=== PATIENT | female | born 1975 | race American Indian/Alaskan Native ===

== ENCOUNTER 2016-12-21 05:47 | Day surgery (SDC) | payer BC ==
--- NOTE | 2016-12-20 14:58 | History and Physical Report ---
History of Present Illness Date of examination: 12/17/16 History of present illness: 41 YOBF p2012 desires permanent sterilization Vital Signs: Patient Profile: 41 Years Old Female LMP: 11/26/2016 Height: 65.5 inches (166.37 cm) Weight: 187 pounds BMI: 30.64 Pt. in pain? no Menstrual History: LMP (date): 11/26/2016 Current Method of Contraception: None Date of Last Pap Smear: 12/09/2015 Past History : 5 Term Births: 2 Premature Births: 0 Living Children: 2 Para: 2 Mult. Births: 0 Prev : 0 Aborta: 3 Elect. Ab: 3 Spont. 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: D&C x3 Umbilical hernia Hysteroscopy: (11/13/2016) Infection History HIV Risk Eval: no Current Allergies: No known allergies Past Medical History: Negative Past Medical History Past Surgical History: D&C x3 Umbilical hernia Hysteroscopy: (11/13/2016) Family History Summary: - Has Family History of Diabetes - Entered On: 12/21/2015 Has Family History of Hypertension - Entered On: 12/21/2015 Social History: Risk Factors: Smoked Tobacco Use: Never smoker Smokeless Tobacco Use: Never Passive smoke exposure: no Drug use: no Alcohol use: no PAP Smear History: Date of Last PAP Smear: 12/09/2015 Review of Systems General Denies fever, chills, sweats, anorexia, fatigue, weakness, malaise, weight loss and sleep disorder. Denies vaginal discharge, incontinence, dysuria, hematuria, urinary frequency, amenorrhea, menorrhagia, abnormal vaginal bleeding, pelvic pain, genital sores, decreased libido, painful periods, painful sex, urinary urgency, hot flashes, vaginal dryness, vaginal itching and vaginal odor. CV Denies chest pains, palpitations, syncope, dyspnea on exertion, orthopnea, PND and peripheral edema. Resp Denies cough, dyspnea at rest, excessive sputum, hemoptysis, wheezing and pleurisy. GI Denies nausea, vomiting, diarrhea, constipation, change in bowel habits, abdominal pain, melena, hematochezia, jaundice, gas/bloating, indigestion/ heartburn, dysphagia and odynophagia. Breast Denies left breast lump, right breast lump, nipple discharge, bloody discharge from nipple, breast pain, abnormal mammogram and breast enlargement. Psych Denies depression, anxiety, irritability and mood swings. Past History Past Medical History: other (See HPI) Past Surgical History: Other (See HPI) Social history: Family history: other (See HPI) Medications and Allergies Allergies Allergy/AdvReac Type Severity Reaction Status Date / Time No Known Allergies Allergy Unverified 12/20/16 09:16 Home Medications Medication Instructions Recorded Confirmed Last Taken Type No Known Home Medications [No 12/20/16 12/20/16 Unknown History Reported Home Medications] Review of Systems Constitutional: other (See HPI) Exam - Physical Exam Narrative exam: HEENT: normocephalic, no lesions or deformities Neck/Thyroid: supple, thyroid normal Skin no ulcers, xanthomas Chest: respiratory effort normal, clear to auscultation Breasts: skin/areolae normal, no masses, no nipple discharge, no erythema/warmth /tenderness, and axillae normal. 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 No evidence of cystocele or rectocele. Cervix: normal appearance, no lesions, no discharge Uterus: normal position, midline, mobile Adnexae: no masses or tenderness Rectovaginal: exam defered Assessment and Plan - Patient Problems (1) Admission for sterilization Status: Acute Plan to address problem: Patient s/p failed Essure placement attempt Patient desires sterilization.Discuss the permanency of sterilization. High risk of regret and 0.5 to 1% risk of failure. Discussed the different risk of abdominal versus vaginal approaches. patient desires laparoscopic tubal ligation Discuss the risks of the surgery including infection, bleeding possibly heavy enough to require a blood transfusion, possible damage to adjacent organs. Discuss permanent nature of the procedure and the 1% failure rate. Discuss of possibility of laparotomy needed
[2016-12-21] MEDS ORDERED: NACL 0.9% 1000 ML 1,000 ML IV SCH (06:00)
[2016-12-21] MEDS ORDERED: NACL BACTERIOSTATIC INFILTRATI ONE (06:23)
[2016-12-21] MEDS ORDERED: DIPRIVAN 10 MG/ML IV ONE (07:03)
[2016-12-21] MEDS ORDERED: SUBLIMAZE ONE (07:03)
[2016-12-21 07:11] LABS: Hematocrit 39.5 % (30.3-42.9); Hemoglobin 12.7 gm/dl (10.1-14.3)
[2016-12-21] MEDS ORDERED: ZOFRAN IV PRN (07:20)
--- NOTE | 2016-12-21 07:20 | Anesthesia Consultation ---
Anesthesia Consult and Med Hx Date of service: 12/21/16 - Airway Anesthetic Teeth Evaluation: Good ROM Head & Neck: Adequate Mental/Hyoid Distance: Adequate Mallampati Class: Class II Intubation Access Assessment: Probably Good - Pulmonary Exam CTA: Yes - Cardiac Exam Cardiac Exam: RRR - Pre-Operative Health Status ASA Pre-Surgery Classification: ASA1 Proposed Anesthetic Plan: General - Pulmonary Hx Smoking: No Hx Asthma: No - Cardiovascular System Hx Hypertension: No Hx Coronary Artery Disease: No - Central Nervous System Hx Psychiatric Problems: No - Endocrine Hx Renal Disease: No Hx Insulin Dependent Diabetes: No Hx Non-Insulin Dependent Diabetes: No - Other Systems Hx Alcohol Use: Yes (occas) Hx Cancer: No
--- NOTE | 2016-12-21 07:20 | Anesthesia Day of Surgery ---
Anesthesia Day of Surgery - Day of Surgery Patient Examined: Yes Patient H&P Reviewed: Yes Patient is NPO: Yes
[2016-12-21] MEDS ORDERED: DECADRON ONE (07:47)
[2016-12-21] MEDS ORDERED: ZOFRAN ONE (07:47)
[2016-12-21] MEDS ORDERED: XYLOCAINE MPF 2% ONE (07:47)
[2016-12-21] MEDS ORDERED: QUELICIN ONE (07:47)
[2016-12-21] MEDS ORDERED: ZEMURON IV ONE (07:49)
[2016-12-21] MEDS ORDERED: ROBINUL ONE (07:51)
[2016-12-21] MEDS ORDERED: NEOSTIGMINE ONE (07:54)
[2016-12-21] MEDS ORDERED: MARCAINE 0.5% INFILTRATI ONE (07:54)
[2016-12-21] MEDS ORDERED: NACL 0.9% IR ONE (07:54)
[2016-12-21] MEDS ORDERED: PEPCID PO NR (08:00)
[2016-12-21] MEDS ORDERED: VERSED IV NR (08:00)
[2016-12-21] MEDS ORDERED: TORADOL ONE (08:11)
--- NOTE | 2016-12-21 08:33 | Operative Report ---
Operative Report Operative Report: Pre-operative diagnosis: Patient desires permanent sterilization Post-operative diagnosis: Same Procedure name(s): Laparoscopic bilateral tubal ligation with Falope-Rings Surgeon: Afshin Zuniga MD Net Developer Consultant: [] Anesthesia: General endotracheal EBL: Minimal Complications: None Findings: Patient with uterus approximately 8- weeks in size with normal fallopian tubes bilaterally Specimen(s): None Patient was brought in the operating room. General anesthesia was induced without difficulty. She was placed in dorsal lithotomy position. Prepped and draped in usual sterile manner. Her urinary bladder with was emptied with a red rubber catheter. Discharge and uterine manipulator was placed for uterine manipulation. Attention was then switched to the patient's abdomen. An infra- umbilical incision was made with a scalpel. This incision was spread with a hemostat. A 5 mm trocar was placed in this incision while lifting high the abdominal wall. Intra-abdominal presence was verified directly with the laparoscope. The patient was then insufflated to approximately 3 L of CO2 gas. The patient's findings as noted above. An accessory puncture was made suprapubically. The 8 mm trocar was placed through this incision under direct visualization with no evidence of internal organ damage. Each of the fallopian tube were identified by its fimbriated end. A portion approximately 1-2 cm from each cornua was grasped with the Falope ring applicator. Falope-Rings were placed without any difficulty bilaterally. 2 rings were placed on the right tube. At this time all instruments were removed. The patient was insufflated. The skin incisions were closed subcuticular with 4-0 Vicryl. Marcaine was given subcuticularly for postoperative pain relief. The patient tolerated procedure well. She was awakened in the operating room and accompanied to the recovery room in good condition.
--- NOTE | 2016-12-21 08:35 | Short Stay Summary ---
Short Stay Documentation Date of service: 12/21/16 - History Past Medical History: other (See HPI) Past Surgical History: Other (See HPI) Social history: - Allergies and Medications Current Medications: Allergies No Known Allergies Allergy (Unverified 12/20/16 09:16) Home Medications Medication Instructions Recorded Confirmed Last Taken Type No Known Home Medications [No 12/20/16 12/20/16 Unknown History Reported Home Medications] Active Medications Famotidine (Pepcid) 20 mg PO PREOP NR Stop: 12/21/16 23:00 Last Admin: 12/21/16 07:20 Dose: 20 mg Hydromorphone HCl (Dilaudid) 0.5 mg IV Q10MIN PRN PRN Reason: Pain , Severe (7-10) Stop: 12/21/16 18:00 Sodium Chloride (Nacl 0.9% 1000 Ml) 1,000 mls @ 125 mls/hr IV DIRECT RONNY Last Admin: 12/21/16 06:40 Dose: 125 mls/hr Midazolam HCl (Versed) 2 mg IV PREOP NR Stop: 12/21/16 23:59 Last Admin: 12/21/16 07:20 Dose: 2 mg - Brief post op/procedure progress note Date of procedure: 12/21/16 Pre-op diagnosis: see op note - Disposition Condition at discharge: Good Disposition: DISCHARGED TO HOME OR SELFCARE - Discharge Diagnoses (1) Admission for sterilization Status: Acute Short Stay Discharge Plan Activity: advance as tolerated Diet: regular Wound: open to air Additional Instructions: Patient was admitted underwent the above him procedure without any complications. Patient will be discharged with follow-up in office in 1-2 weeks for postop check. Follow up with: PRIMARY CARE, [Primary Care Provider] - 7 Days Prescriptions: oxyCODONE /ACETAMINOPHEN [Percocet 5/325 mg] 1 - 2 tab PO Q4H PRN #30 tablet PRN Reason: Pain, Moderate
[2016-12-21] MEDS: DILAUDID IV PRN ×2 (09:05→09:15)
--- NOTE | 2016-12-21 09:10 | Post Anesthesia Evaluation ---
- Post Anesthesia Evaluation Patient Participated: Yes Airway Patent: Yes Stable Respiratory Function: Yes Nausea/Vomiting: No Temp > 96.8F: Yes Pain Manageable: Yes Adequeate Hydration: Yes Anesthesia Complications: No Block Receding Appropriately: Not Applicable Patient on Ventilator: No
[2016-12-21 09:36] VITALS: BP 119/76
== END 2016-12-21 10:10 | disposition home or self-care (01) ==
LOC: OR 05:47
PROVIDERS: ATTEND Obstetrics & Gynecology
DX: Z30.2 Encounter for sterilization (principal); Z98.890 Other specified postprocedural states; Z72.89 Other problems related to lifestyle; Z82.49 Family history of ischemic heart disease and other diseases of the circulatory system; Z83.3 Family history of diabetes mellitus
CPT/HCPCS: 36415; 58671; 81025; 85014; 85018; J0330; J1100; J1170; J1885; J2250; J2405; J2704; J2710; J3010; J7030